=== PATIENT | female | born 1995 | race African-American/Black ===

== ENCOUNTER 2019-04-01 16:31 | Emergency (ER) | payer MEDICAID | END 2019-04-01 21:10 | disposition left against medical advice (07) | LOC: ER 16:31 | DX: J11.1 Influenza due to unidentified influenza virus with other respiratory manifestations (principal); Z53.21 Procedure and treatment not carried out due to patient leaving prior to being seen by health care provider ==

== ENCOUNTER 2020-11-21 12:50 | Emergency (ER) | payer MEDICAID ==
[~2020-11-21] VITALS: Ht 170.2 cm; Wt 65.0 kg
[2020-11-21 12:59] VITALS: BP 110/62
[2020-11-21] MEDS ORDERED: DIPHENHYDRAMINE 50MG CAPSULE PO ONE (14:45)
[2020-11-21] MEDS ORDERED: PREDNISONE 20MG TABLET PO ONE (14:45)
[2020-11-21] MEDS ORDERED: P20 MT (15:07)
[2020-11-21] MEDS ORDERED: DIPH25CA83 MT (15:07)
== END 2020-11-21 15:37 | disposition home or self-care (01) ==
LOC: ER 13:04
DX: L29.9 Pruritus, unspecified (principal); Z88.6 Allergy status to analgesic agent
CPT/HCPCS: 99283; J7512; Q0163

== ENCOUNTER 2021-06-18 09:57 | Emergency (ER) | payer MEDICAID ==
[~2021-06-18] VITALS: Ht 167.6 cm; Wt 66.0 kg
[~2021-06-18 09:57] MED LIST: DIPH25CA83 MT; P20 MT
[2021-06-18] MEDS ORDERED: ONDANSETRON HCL 4MG/2ML INJ IV STA (10:09)
[2021-06-18] MEDS ORDERED: ACETAMINOPHEN 325MG TABLET PO STA (10:09)
[2021-06-18 11:01] LABS: BASOPHILS % 0.1 % (0.0-2.0); HEMATOCRIT. 35.8 % (36.0-48.0); HEMOGLOBIN. 12.3 g/dL (12.0-16.0); MEAN CORPUSCULAR HEMOGLOBIN 32.4 pg (28.0-32.0); MEAN CORPUSCULAR VOLUME 94.6 fL (81.0-99.0); MEAN PLATELET VOLUME 9.1 fl (7.4-10.4); MONOCYTES % 4.6 % (2.0-8.0); NEUTROPHILS % 87.3 % (40.0-76.0); PLATELET 231 x1000/uL (130-400); RED BLOOD CELL COUNT 3.79 mill/uL (4.2-5.4); RED CELL DISTRIBUTION WIDTH 12.1 % (11.6-14.6)
[2021-06-18 11:07] LABS: CHLORIDE 106 mEq/L (98-107)
[2021-06-18 11:09] LABS: HCG SCREEN POSITIVE
[2021-06-18 11:57] LABS: CLARITY URINE TURBID (CLEAR); COLOR URINE DK YELLOW (YELLOW); KETONES URINE NEGATIVE (NEGATIVE); LEUKOCYTE ESTERASE URINE 2+ (NEGATIVE); NITRITE URINE NEGATIVE (NEGATIVE); OCCULT BLOOD URINE 3+ (NEGATIVE); PROTEIN URINE 3+ (NEGATIVE); UROBILINOGEN URINE 0.2 E.U./dL (0.2-1.0)
[2021-06-18] MEDS ORDERED: NITR100C PO (13:48)
[2021-06-18] MEDS ORDERED: TOPUD PO (13:48)
[2021-06-18] MEDS ORDERED: PNV1TABL50 PO (13:49)
[2021-06-18] MEDS ORDERED: ACETAMINOPHEN 325MG TABLET PO ONE (14:15)
[2021-06-18 14:17] VITALS: BP 109/60
== END 2021-06-18 14:55 | disposition home or self-care (01) ==
LOC: ER 09:57
DX: O20.0 Threatened abortion (principal); O23.41 Unspecified infection of urinary tract in pregnancy, first trimester; N39.0 Urinary tract infection, site not specified; Z3A.01 Less than 8 weeks gestation of pregnancy; Z88.5 Allergy status to narcotic agent
CPT/HCPCS: 36415; 76801; 76817; 80053; 81003; 83690; 84702; 84703; 85025; 87086; 96374; 99284; J2405